=== PATIENT | female | born 1985 | race Caucasian/White ===

== ENCOUNTER 2020-09-25 02:08 | Inpatient (IN) | payer OTHER ==
[~2020-09-25] VITALS: Ht 177.8 cm; Wt 99.3 kg
[2020-09-25 03:09] LABS: HEMOGLOBIN 11.6 gm/dl (12.3-15.3); RED BLOOD COUNT 3.92 M/UL (4.00-5.10); WHITE BLOOD COUNT 7.8 K/UL (4.5-11.0)
[2020-09-25] MEDS ORDERED: COLACE 100MG C100 MG PO (10:04)
[2020-09-25] MEDS ORDERED: IBU600 MG PO (10:04)
[2020-09-26 06:22] LABS: HEMOGLOBIN 10.7 gm/dl (12.3-15.3)
== END 2020-09-26 15:30 | disposition home or self-care (01) | DRG 807 ==
LOC: GENOP 02:08 → OB 02:53
PROVIDERS: ADMIT Obstetrics & Gynecology
PROC: 10E0XZZ Delivery of Products of Conception, External Approach (ICD-10-PCS; principal; 2020-09-25)
PROC: 0HQ9XZZ Repair Perineum Skin, External Approach (ICD-10-PCS; 2020-09-25)
PROC: 4A1HXCZ Monitoring of Products of Conception, Cardiac Rate, External Approach (ICD-10-PCS; 2020-09-25)
PROC: 0U7C7ZZ Dilation of Cervix, Via Natural or Artificial Opening (ICD-10-PCS; 2020-09-25)
DX: O42.02 Full-term premature rupture of membranes, onset of labor within 24 hours of rupture (principal); Z37.0 Single live birth; Z3A.38 38 weeks gestation of pregnancy; O70.0 First degree perineal laceration during delivery; Z20.822 Contact with and (suspected) exposure to COVID-19
CPT/HCPCS: 36415; 81001; 82800; 83518; 85014; 85018; 85025; 90715; J2590; J2795; U0002; U0003

== ENCOUNTER → 2021-05-23 | Outpatient (CLI) | payer OTHER ==
[~2021-05-23] MED LIST: COLACE 100MG C100 MG PO; IBU600 MG PO
[2021-05-23 13:43] LABS: HEMOGLOBIN 13.9 gm/dl (12.3-15.3); RED BLOOD COUNT 4.81 M/UL (4.00-5.10); WHITE BLOOD COUNT 7.3 K/UL (4.5-11.0)
== END ==
LOC: LAB 13:19
PROVIDERS: Internal Medicine
DX: M54.6 Pain in thoracic spine (principal); M25.561 Pain in right knee; M25.562 Pain in left knee; M79.604 Pain in right leg; M47.814 Spondylosis without myelopathy or radiculopathy, thoracic region; R93.6 Abnormal findings on diagnostic imaging of limbs
CPT/HCPCS: 36415; 71046; 72072; 73564; 85025; 85379; 85610; 85730

== ENCOUNTER → 2021-06-30 | Outpatient (CLI) | payer OTHER | LOC: KOH-I 09:35 | DX: R10.9 Unspecified abdominal pain (principal) | CPT/HCPCS: 76705 ==

== ENCOUNTER → 2021-12-22 | Outpatient (CLI) | payer OTHER | LOC: CT 10:19 | DX: R07.89 Other chest pain (principal); R91.8 Other nonspecific abnormal finding of lung field | CPT/HCPCS: 71275; Q9967 ==

== ENCOUNTER → 2022-02-06 | Outpatient (CLI) | payer OTHER | LOC: RAD 16:11 | DX: M25.50 Pain in unspecified joint (principal) | CPT/HCPCS: 73522; 73560 ==